=== PATIENT | male | born 1960 | race Caucasian/White ===

== ENCOUNTER 2018-12-08 20:22 | Emergency (ER) | payer MEDICAID ==
[~2018-12-08] VITALS: Ht 175.3 cm; Wt 85.0 kg
[~2018-12-08 20:22] MED LIST: CYCL-1 PO; NO HOME MEDS
[2018-12-08 20:59] LABS: BASOPHILS % (AUTO) 0.3 % (0-1); EOSINOPHILS # (AUTO) 0.1 X10'3 (0-0.9); EOSINOPHILS % (AUTO) 0.7 % (0-6); HEMATOCRIT 48.1 % (42.0-52.0); HEMOGLOBIN 16.8 g/dl (14.0-17.9); LYMPHOCYTES # (AUTO) 4.7 X10'3 (1.1-4.8); LYMPHOCYTES % (AUTO) 33.5 % (21-51); MEAN CORPUSCULAR HEMOGLOBIN 33.2 PG (27.0-31.0); MEAN CORPUSCULAR HGB CONC 34.9 g/dL (33.0-36.5); MEAN PLATELET VOLUME 9.8 FL (7.4-10.4); MONOCYTES # (AUTO) 1.1 X10'3 (0-0.9); MONOCYTES % (AUTO) 7.6 % (2-12); NEUTROPHILS # (AUTO) 8.1 X10'3 (1.8-7.7); NEUTROPHILS % (AUTO) 57.9 % (42-75); PLATELET COUNT 305 X10'3 (140-440); RED BLOOD COUNT 5.06 X10'6 (4.70-6.10); RED CELL DISTRIBUTION WIDTH 12.5 % (11.5-14.5)
[2018-12-08 21:13] LABS: ALANINE AMINOTRANSFERASE 65 U/L (12-78); ALBUMIN 3.9 G/DL (3.4-5.0); ALKALINE PHOSPHATASE 81 IU/L (46-116); ANION GAP 11 (8-16); ASPARTATE AMINO TRANSFERASE 30 U/L (10-37); BILIRUBIN,TOTAL 1.1 MG/DL (0.1-1.0); BLOOD UREA NITROGEN 8 MG/DL (7-18); BUN/CREATININE RATIO 10.5 (5.4-32.0); CALCIUM 9.1 MG/DL (8.5-10.1); CHLORIDE 98 MMOL/L (99-107); CREATININE 0.76 MG/DL (0.60-1.10); GLUCOSE 248 MG/DL (70-104); LIPASE 108 U/L (73-393); POTASSIUM 3.9 MMOL/L (3.5-5.1); SODIUM 135 MMOL/L (135-145); TOTAL CARBON DIOXIDE 25.6 MMOL/L (24-32); eGFR > 90 ML/MIN
[2018-12-08 22:00] LABS: CLARITY,URINE CLEAR (Clear); COLOR,URINE YELLOW (Yellow); GLUCOSE, URINE 100 mg/dl (Neg); KETONES,URINE 15 mg/dl (Neg); LEUKOCYTE ESTERASE ,URINE NEGATIVE (Neg); NITRITES, URINE NEGATIVE (Neg); OCCULT BLOOD,URINE NEGATIVE (Neg); PROTEIN,URINE NEGATIVE (Neg); UROBILINOGEN,URINE 0.2 E.U/dL (0.2-1.0)
[2018-12-08 22:02] LABS: UA COLLECTION TYPE VOIDED
--- NOTE | 2018-12-08 22:07 | NUR ---
PT SITTING UP ON SIDE OF BED, NO DISTRESS NOTED, NO NEEDS AT THIS TIME
--- NOTE | 2018-12-08 22:50 | NUR ---
PT BACK FROM CT
[2018-12-08] MEDS: diatr meglu/diatrizoate 30ml oral sol.-(3 dose) bottle PO SCH (23:21)
[2018-12-09] MEDS: diatr meglu/diatrizoate 30ml oral sol.-(3 dose) bottle PO SCH ×2 (00:03→01:08)
[2018-12-09] MEDS ORDERED: iohexol 300mg/ml 100ml inj. ONE (00:36)
[2018-12-09 01:45] VITALS: BP 116/60
[2018-12-09] MEDS ORDERED: BISA10SU60 RC (02:25)
--- NOTE | 2018-12-09 09:36 | NUR ---
AT DR QUINTEROS'S REQUEST, PT WAS CALLED AND INFORMED OF SUBSEQUENT RADIOLOGIST READ OF CT SCAN. PT WAS INFORMED THAT THE RADIOLOGIST RECOMMENDED A FOLLOW-UP TO A UROLOGIST FOR FURTHER EVALUATION OF A CONCERNING AREA WITHIN HIS BLADDER. PT WAS REFERED TO DR PLASCENCIA PER DR QUINTEROS. PT WAS PROVIDED DR KENT ADDRESS/PHONE # AND RECOMMEDED THAT HE CALL FOR AN APPT MONDAY MORNING, ALSO THAT IT MAY BE REQUIRED FOR HIM TO F/U WITH HIS PMD FOR THE REFERRAL PER HIS HE[employer] INSURANCE CARRIER. PT WAS APPRECIATIVE OF THE FOLLOW-UP CALL AND INFORMATION
== END 2018-12-09 02:31 | disposition home or self-care (01) ==
LOC: ER 20:22
DX: N21.0 Calculus in bladder (principal); K59.00 Constipation, unspecified; R73.9 Hyperglycemia, unspecified; F17.200 Nicotine dependence, unspecified, uncomplicated; Z79.899 Other long term (current) drug therapy
CPT/HCPCS: 36415; 74018; 74177; 80053; 81003; 83690; 85025; 85610; 99284; Q9963; Q9967

== ENCOUNTER 2022-10-28 16:59 | Emergency (ER) | payer MEDICAID ==
[~2022-10-28] VITALS: Ht 177.8 cm; Wt 98.0 kg
[~2022-10-28 16:59] MED LIST changes: +BISA10SU60 RC
[2022-10-28 18:21] LABS: CLARITY,URINE CLOUDY (Clear); GLUCOSE, URINE 100 mg/dl (Neg); KETONES,URINE TRACE mg/dl (Neg); LEUKOCYTE ESTERASE ,URINE LARGE (Neg); NITRITES, URINE POSITIVE (Neg); OCCULT BLOOD,URINE SMALL (Neg); PH,URINE 5.5 (4.8-8.0); PROTEIN,URINE 30 mg/dl (Neg)
[2022-10-28 18:28] LABS: BASOPHILS % (AUTO) 0.3 % (0-1); EOSINOPHILS # (AUTO) 0.1 X10'3 (0-0.9); EOSINOPHILS % (AUTO) 1.1 % (0-6); HEMATOCRIT 43.4 % (42.0-52.0); HEMOGLOBIN 14.6 g/dl (14.0-17.9); LYMPHOCYTES # (AUTO) 4.1 X10'3 (1.1-4.8); LYMPHOCYTES % (AUTO) 32.5 % (21-51); MEAN CORPUSCULAR HGB CONC 33.7 g/dL (33.0-36.5); MEAN CORPUSCULAR VOLUME 94.9 FL (78-98); MEAN PLATELET VOLUME 9.8 FL (7.4-10.4); MONOCYTES # (AUTO) 1.1 X10'3 (0-0.9); MONOCYTES % (AUTO) 8.9 % (2-12); NEUTROPHILS # (AUTO) 7.2 X10'3 (1.8-7.7); NEUTROPHILS % (AUTO) 57.2 % (42-75); PLATELET COUNT 282 X10'3 (140-440); RED BLOOD COUNT 4.57 X10'6 (4.70-6.10); RED CELL DISTRIBUTION WIDTH 12.9 % (11.5-14.5); WHITE BLOOD COUNT 12.7 X10'3 (4.5-11.0)
[2022-10-28 18:36] LABS: COLOR,URINE AMBER (Yellow)
[2022-10-28 18:37] LABS: UA COLLECTION TYPE CLN CATCH MIDSTREAM
[2022-10-28 18:40] LABS: BACTERIA,URINE 3+ /HPF (Neg); MUCUS STRANDS FEW /LPF (Neg); RBC,URINE 0-2 /HPF (0-2); SQUAMOUS EPITHELIAL CELL,UR FEW /LPF (FEW); WBC,URINE TNTC /HPF (0-4)
[2022-10-28 18:51] LABS: ALANINE AMINOTRANSFERASE 26 U/L (12-78); ALBUMIN 3.8 G/DL (3.4-5.0); ALKALINE PHOSPHATASE 68 IU/L (46-116); ANION GAP 7 (8-16); ASPARTATE AMINO TRANSFERASE 17 U/L (10-37); BILIRUBIN,TOTAL 0.6 MG/DL (0.1-1.0); BLOOD UREA NITROGEN 6 MG/DL (7-18); BUN/CREATININE RATIO 7.1 (10.0-20.0); CALCIUM 9.2 MG/DL (8.5-10.1); CHLORIDE 96 MMOL/L (99-107); CREATININE 0.84 MG/DL (0.60-1.10); GLUCOSE 235 MG/DL (70-104); SODIUM 133 MMOL/L (135-145); TOTAL CARBON DIOXIDE 29.7 MMOL/L (24-32); TOTAL PROTEIN 7.6 G/DL (6.4-8.2); eGFR > 90 ML/MIN
[2022-10-28 20:50] VITALS: BP 109/60
[2022-10-28] MEDS ORDERED: levoFLOXACIN 750MG TABLET PO ONE (20:55)
--- NOTE | 2022-10-28 20:56 | NUR ---
pt is 62 yo male c/o rt groin pain, urine urgency, dysuria since . Pt was at urologist, had scope done to see if there was cancer in bladder, "they did not see anything", fever at home. Pt has been evaluated by provider, family at bedside
--- NOTE | 2022-10-28 21:02 | NUR ---
pt to CT
[2022-10-28] MEDS ORDERED: LEVO-65 PO (21:56)
== END 2022-10-28 21:59 | disposition home or self-care (01) ==
LOC: ER 17:00
DX: N30.90 Cystitis, unspecified without hematuria (principal); Z88.6 Allergy status to analgesic agent; Z88.2 Allergy status to sulfonamides; Z79.899 Other long term (current) drug therapy
CPT/HCPCS: 36415; 74176; 80053; 81001; 85025; 87077; 87088; 87186; 99284